=== PATIENT | female | born 1955 | race African-American/Black ===

== ENCOUNTER 2021-01-18 03:41 | Inpatient (IN) ==
[2021-01-18] MEDS ORDERED: ONDANSETRON 4 MG/2 ML VIAL IV STA (04:43)
[2021-01-18] MEDS ORDERED: DEXAMETHASONE 4 MG/1 ML VIAL IV STA (04:43)
[2021-01-18 05:04] LABS: Basophils % 0.4 % (0.0-0.8); Eosinophils # 0.1 10*3/uL (0.0-0.87); Eosinophils % 1.3 % (0.00-10.9); Hematocrit 40.3 VOL% (35.7-47.0); Hemoglobin 12.2 GM/DL (12.0-16.0); Immature Granulocytes % 0.4 %; Immature Granulocytes Absolute 0.04 #; Lymphocytes # 2.2 10*3/uL (1.4-4.0); Lymphocytes % 20.1 % (21.3-54.2); Mean Corpuscular HGB Conc 30.3 GM/DL (32-36); Mean Corpuscular Volume 97.1 FL (87-102); Mean Platelet Volume 11.7 FL (9.6-12.0); Monocytes % 5.5 % (1.7-12.7); Neutrophils % 72.3 % (38.7-73.9); Platelet Count 265 T/CUMM (130-400); Red Blood Count 4.15 MC/CUMM (3.8-5.5); Red Cell Distribution Width 12.5 % (9.3-17.3)
[2021-01-18 05:11] LABS: INR 0.9
[2021-01-18 05:26] LABS: Alanine Aminotransferase 32 U/L (13-56); Albumin 3.6 G/DL (3.4-5.0); Alkaline Phosphatase 133 U/L (45-117); Aspartate Amino Transferase 19 U/L (0-37); Bilirubin,Total < 0.39 MG/DL (0.2-1.0); Blood Urea Nitrogen 23 MG/DL (7-18); Calcium 9.5 MG/DL (8.5-10.1); Carbon Dioxide 30 MMOL/L (21-32); Estimated Glom Filtration Rate 85 ML/MIN; Free T4 (Free Thyroxine) 1.01 NG/DL (0.76-1.46); Glucose 222 MG/DL (74-106); Osmolality,Calculated 283.8 MOS/KG (273-304); Potassium 3.9 MMOL/L (3.5-5.1); Sodium 137 MMOL/L (136-145); Total Protein 9.3 G/DL (6.4-8.3)
[2021-01-18 05:37] LABS: Bacteria,Urine Occasional /HPF (Few); Bilirubin,Urine Negative (Negative); Blood, Urine Small mg/dL (Negative); Glucose,Urine (UA) 150 mg/dL (Negative); Ketones,Urine Negative (Negative); Mucus,Urine Occasional /LPF (Occasional); Nitrite,Urine Negative (Negative); Protein,Urine 30 MG/DL; RBC,Urine 1 /HPF (0-4); Squamous Epithelial Cell,Urine Occasional /HPF (0-10); Urine Appearance CLEAR (Clear); Urine Color Colorless (Yellow); Urine Specific Gravity 1.009 (1.001-1.035); Urine Urobilinogen < 2.0 EU/DL (0.2-1.0); WBC,Urine <1 /HPF (0-6)
[2021-01-18] MEDS ORDERED: ONDANSETRON 4 MG/2 ML VIAL IV PRN (06:16)
[2021-01-18] MEDS ORDERED: ALBUTEROL 2.5 MG/3 ML NEB RESP TX PRN (06:16)
[2021-01-18] MEDS: LACTATED RINGERS 1,000 ML IV SCH ×2 (08:05→18:05)
[2021-01-18] MEDS: FAMOTIDINE 20 MG/2 ML VIAL IV SCH ×2 (08:07→18:25)
[2021-01-18] MEDS: DEXAMETHASONE 4 MG/1 ML VIAL IV SCH ×3 (09:34→21:21)
[2021-01-18] MEDS ORDERED: hydrALAZINE 20 MG/1 ML VIAL IV PRN (10:05)
[2021-01-18] MEDS ORDERED: LABETALOL 20 MG/4 ML SYRINGE IV ONE (10:06)
[2021-01-18] MEDS: LABETALOL 20 MG/4 ML SYRINGE IV PRN ×2 (16:52→23:29)
[2021-01-18] MEDS: hydrALAZINE 20 MG/1 ML VIAL IV PRN (22:55)
[2021-01-18] MEDS ORDERED: CALCIUM CARBONATE CHEW 500 MG TABLET PO ONE (23:52)
[2021-01-19] MEDS: DEXAMETHASONE 4 MG/1 ML VIAL IV SCH ×4 (02:26→15:56)
[2021-01-19] MEDS: LACTATED RINGERS 1,000 ML IV SCH ×2 (04:10→14:10)
[2021-01-19 04:22] LABS: Basophils % 0.1 % (0.0-0.8); Hematocrit 34.2 VOL% (35.7-47.0); Hemoglobin 10.7 GM/DL (12.0-16.0); Immature Granulocytes % 0.7 %; Immature Granulocytes Absolute 0.07 #; Lymphocytes # 1.7 10*3/uL (1.4-4.0); Lymphocytes % 15.7 % (21.3-54.2); Mean Corpuscular HGB Conc 31.3 GM/DL (32-36); Mean Corpuscular Volume 95.3 FL (87-102); Mean Platelet Volume 11.3 FL (9.6-12.0); Monocytes % 4.8 % (1.7-12.7); Neutrophils % 78.7 % (38.7-73.9); Platelet Count 247 T/CUMM (130-400); Red Blood Count 3.59 MC/CUMM (3.8-5.5); Red Cell Distribution Width 12.7 % (9.3-17.3); White Blood Count 10.5 T/CUMM (4-12)
[2021-01-19 04:40] LABS: Calcium 9.5 MG/DL (8.5-10.1); Osmolality,Calculated 289.5 MOS/KG (273-304); Potassium 4.2 MMOL/L (3.5-5.1)
[2021-01-19] MEDS: FAMOTIDINE 20 MG/2 ML VIAL IV SCH ×2 (06:19→18:55)
[2021-01-19] MEDS: hydrALAZINE 20 MG/1 ML VIAL IV PRN (07:28)
[2021-01-19] MEDS: amLODIPine 5 MG TABLET PO SCH (10:33)
[2021-01-19] MEDS: carvediloL 25 MG TABLET PO SCH ×2 (10:34→20:03)
[2021-01-19] MEDS ORDERED: GLUCAGON 1 MG VIAL IM PRN (15:22)
[2021-01-19] MEDS ORDERED: DEXTROSE 50% 25 GM/50 ML VIAL IV PRN (15:22)
[2021-01-19] MEDS: INSULIN LISPRO 100 UNIT/ML SUBCUT SCH ×2 (15:53→20:04)
[2021-01-20] MEDS: DEXAMETHASONE 4 MG/1 ML VIAL IV SCH ×3 (00:11→17:00)
[2021-01-20] MEDS: LACTATED RINGERS 1,000 ML IV SCH ×2 (03:56→08:01)
[2021-01-20] MEDS: CALCIUM CARBONATE CHEW 500 MG TABLET PO PRN ×2 (04:22→22:34)
[2021-01-20] MEDS: FAMOTIDINE 20 MG/2 ML VIAL IV SCH ×2 (05:56→22:33)
[2021-01-20] MEDS: amLODIPine 5 MG TABLET PO SCH (09:43)
[2021-01-20] MEDS: LOSARTAN 50 MG TABLET PO SCH (09:43)
[2021-01-20] MEDS: carvediloL 25 MG TABLET PO SCH ×2 (09:43→22:33)
[2021-01-20] MEDS: INSULIN LISPRO 100 UNIT/ML SUBCUT SCH ×4 (10:03→22:39)
[2021-01-20] MEDS: hydrALAZINE 20 MG/1 ML VIAL IV PRN (22:34)
[2021-01-20] MEDS ORDERED: ACETAMINOPHEN 325 MG TABLET PO PRN (23:49)
[2021-01-21] MEDS: DEXAMETHASONE 4 MG/1 ML VIAL IV SCH ×3 (01:00→21:25)
[2021-01-21] MEDS: LACTATED RINGERS 1,000 ML IV SCH ×2 (03:30→19:57)
[2021-01-21] MEDS: LACTULOSE 20 GM/30 ML UDCUP PO PRN (04:04)
[2021-01-21] MEDS: FAMOTIDINE 20 MG/2 ML VIAL IV SCH ×2 (07:01→18:50)
[2021-01-21] MEDS: carvediloL 25 MG TABLET PO SCH ×2 (10:26→20:14)
[2021-01-21] MEDS: ENOXAPARIN 40 MG/0.4 ML SYRINGE SUBCUT SCH (10:26)
[2021-01-21] MEDS: INSULIN LISPRO 100 UNIT/ML SUBCUT SCH ×4 (10:26→20:12)
[2021-01-21] MEDS: LOSARTAN 50 MG TABLET PO SCH (10:26)
[2021-01-21] MEDS: glipiZIDE 5 MG TABLET PO SCH ×2 (10:27→16:51)
[2021-01-21] MEDS: amLODIPine 5 MG TABLET PO SCH (10:27)
[2021-01-21] MEDS ORDERED: glipiZIDE 5 MG TABLET PO SCH (16:30)
[2021-01-22] MEDS: hydrALAZINE 20 MG/1 ML VIAL IV PRN (03:08)
[2021-01-22] MEDS: FAMOTIDINE 20 MG/2 ML VIAL IV SCH ×2 (06:27→17:32)
[2021-01-22] MEDS: carvediloL 25 MG TABLET PO SCH ×2 (09:54→21:13)
[2021-01-22] MEDS: amLODIPine 5 MG TABLET PO SCH (09:54)
[2021-01-22] MEDS: glipiZIDE 5 MG TABLET PO SCH ×2 (09:54→16:09)
[2021-01-22] MEDS: ENOXAPARIN 40 MG/0.4 ML SYRINGE SUBCUT SCH (09:54)
[2021-01-22] MEDS: INSULIN LISPRO 100 UNIT/ML SUBCUT SCH ×4 (09:54→21:10)
[2021-01-22] MEDS: LOSARTAN 50 MG TABLET PO SCH (09:54)
[2021-01-22] MEDS: DEXAMETHASONE 4 MG/1 ML VIAL IV SCH ×2 (09:55→21:15)
[2021-01-22] MEDS: LACTULOSE 20 GM/30 ML UDCUP PO PRN (21:20)
[2021-01-23] MEDS: LACTULOSE 20 GM/30 ML UDCUP PO PRN (03:54)
[2021-01-23] MEDS: hydrALAZINE 20 MG/1 ML VIAL IV PRN (03:56)
[2021-01-23 04:37] LABS: Hematocrit 34.6 VOL% (35.7-47.0); Hemoglobin 11.2 GM/DL (12.0-16.0); Immature Granulocytes % 0.9 %; Immature Granulocytes Absolute 0.07 #; Lymphocytes # 1.5 10*3/uL (1.4-4.0); Lymphocytes % 18.6 % (21.3-54.2); Mean Corpuscular HGB Conc 32.4 GM/DL (32-36); Mean Corpuscular Volume 93.3 FL (87-102); Mean Platelet Volume 11.2 FL (9.6-12.0); Monocytes % 6.1 % (1.7-12.7); Neutrophils % 74.4 % (38.7-73.9); Platelet Count 230 T/CUMM (130-400); Red Blood Count 3.71 MC/CUMM (3.8-5.5); Red Cell Distribution Width 12.3 % (9.3-17.3); White Blood Count 8.1 T/CUMM (4-12)
[2021-01-23 05:05] LABS: Calcium 8.4 MG/DL (8.5-10.1); Osmolality,Calculated 292.1 MOS/KG (273-304); Potassium 4.1 MMOL/L (3.5-5.1)
[2021-01-23] MEDS: FAMOTIDINE 20 MG/2 ML VIAL IV SCH ×2 (06:09→18:10)
[2021-01-23] MEDS: carvediloL 25 MG TABLET PO SCH ×2 (08:43→21:10)
[2021-01-23] MEDS: amLODIPine 5 MG TABLET PO SCH (08:43)
[2021-01-23] MEDS: LOSARTAN 50 MG TABLET PO SCH (08:43)
[2021-01-23] MEDS: glipiZIDE 5 MG TABLET PO SCH ×2 (08:43→17:00)
[2021-01-23] MEDS: ENOXAPARIN 40 MG/0.4 ML SYRINGE SUBCUT SCH (08:44)
[2021-01-23] MEDS: INSULIN LISPRO 100 UNIT/ML SUBCUT SCH ×3 (08:44→22:10)
[2021-01-23] MEDS: DEXAMETHASONE 4 MG/1 ML VIAL IV SCH ×2 (10:36→21:11)
[2021-01-24] MEDS: hydrALAZINE 20 MG/1 ML VIAL IV PRN (04:44)
[2021-01-24] MEDS: FAMOTIDINE 20 MG/2 ML VIAL IV SCH ×2 (06:29→18:20)
[2021-01-24] MEDS: amLODIPine 5 MG TABLET PO SCH (08:48)
[2021-01-24] MEDS: carvediloL 25 MG TABLET PO SCH ×2 (08:48→21:10)
[2021-01-24] MEDS: LOSARTAN 50 MG TABLET PO SCH (08:48)
[2021-01-24] MEDS: glipiZIDE 5 MG TABLET PO SCH ×2 (08:48→17:21)
[2021-01-24] MEDS: ENOXAPARIN 40 MG/0.4 ML SYRINGE SUBCUT SCH (08:49)
[2021-01-24] MEDS: INSULIN LISPRO 100 UNIT/ML SUBCUT SCH ×4 (08:49→21:17)
[2021-01-24] MEDS: DEXAMETHASONE 4 MG/1 ML VIAL IV SCH ×2 (09:44→21:13)
[2021-01-24] MEDS ORDERED: INFLUENZA VIRUS VACCINE 0.5 ML SYRINGE IM ONE (19:34)
[2021-01-25] MEDS: ENOXAPARIN 40 MG/0.4 ML SYRINGE SUBCUT SCH (09:06)
[2021-01-25] MEDS: INSULIN LISPRO 100 UNIT/ML SUBCUT SCH ×4 (09:06→21:47)
[2021-01-25] MEDS: glipiZIDE 5 MG TABLET PO SCH ×2 (09:07→16:16)
[2021-01-25] MEDS: amLODIPine 5 MG TABLET PO SCH (09:07)
[2021-01-25] MEDS: carvediloL 25 MG TABLET PO SCH ×3 (09:07→21:14)
[2021-01-25] MEDS: DEXAMETHASONE 4 MG/1 ML VIAL IV SCH ×2 (09:07→21:04)
[2021-01-25] MEDS: LACTULOSE 20 GM/30 ML UDCUP PO PRN (09:13)
[2021-01-25] MEDS: LOSARTAN 50 MG TABLET PO SCH (09:29)
[2021-01-25] MEDS: FAMOTIDINE 20 MG/2 ML VIAL IV SCH (11:24)
[2021-01-25] MEDS: FAMOTIDINE 20 MG TABLET PO SCH (20:59)
[2021-01-26] MEDS: INSULIN LISPRO 100 UNIT/ML SUBCUT SCH ×2 (09:06→11:25)
[2021-01-26] MEDS: DEXAMETHASONE 4 MG/1 ML VIAL IV SCH (09:07)
[2021-01-26] MEDS: amLODIPine 5 MG TABLET PO SCH (09:07)
[2021-01-26] MEDS: ENOXAPARIN 40 MG/0.4 ML SYRINGE SUBCUT SCH (09:07)
[2021-01-26] MEDS: FAMOTIDINE 20 MG TABLET PO SCH (09:07)
[2021-01-26] MEDS: glipiZIDE 5 MG TABLET PO SCH (09:07)
[2021-01-26] MEDS: LOSARTAN 50 MG TABLET PO SCH (09:07)
[2021-01-26] MEDS: carvediloL 25 MG TABLET PO SCH (09:08)
[2021-01-26 16:31] VITALS: BP 173/64
== END 2021-01-26 17:25 | disposition home or self-care (01) | DRG 644 ==
LOC: N.ED 03:41 → N.EDINP 05:35 → SUATTDRO 05:35 → N.EDINP 06:38 → N.ICU 06:57 → N.3E 01-22 11:03
PROVIDERS: ADMIT Family Medicine; ATTEND Internal Medicine